=== PATIENT | male | born 1960 | race Caucasian/White ===

== ENCOUNTER 2024-12-17 10:27 | Emergency (ER) | payer OTHER ==
[~2024-12-17] VITALS: Ht 165.1 cm; Wt 132.0 kg
--- NOTE | 2024-12-17 10:57 | ED.PDOC ---
History of Present Illness HPI Comments This is a 64-year-old male who comes in with chief complaint of left foot pain and possible infection. The patient typically sees the doctor at [facility] on Mondays and . Today they went to have him evaluated and the patient had maggots on his left foot. They did clean it and send the patient to the e mergency department's. At this time the patient states that he does not have any significant pain. The patient was also given Toradol prior to arrival. The patient is having some drainage from the area. He does state that last night he accidentally kicked a trash can as well. Chief Complaint: Wound Check Time Seen by MD: 10:28 Primary Care Provider: THAYNE Reviewed Notes: Nurses Notes, Amphibian Crewmember Notes, Medications, Allergies (No allergies to medications) Allergies: Coded Allergies: NO KNOWN ALLERGIES (Unverified , 12/17/24) Information Source: Patient, Emergency Med Personnel Mode of Arrival: EMS Severity: Moderate Timing: Hours Duration: Since onset Prehospital treatment: None Location: Left foot pain with drainage and infection Past Medical History PAST MEDICAL HISTORY: Anxiety, Cancer (Previous history of skin cancer), HTN Surgical History (Other): Skin cancer surgery Family History Family History: Family hx of Cancer, Family hx of heart cookie Social History Smoker: Non-Smoker Alcohol: Denies ETOH Use Drugs: Denies Drug Use Lives In: Home Constitutional: denies: chills, diaphoresis, fatigue, fever, malaise, sweats, weakness, others EENTM: denies: blurred vision, double vision, ear bleeding, ear discharge, ear drainage, ear pain, ear ringing, eye pain, eye redness, hearing loss, mouth pain, mouth swelling, nasal discharge, nose bleeding, nose congestion, nose pain, photophobia, tearing, throat pain, throat swelling, voice changes, others Respiratory: denies: cough, hemoptysis, orthopnea, SOB at rest, shortness of breath, SOB with excertion, stridor, wheezing, others Cardiovascular: denies: chest pain, dizzy spells, diaphoresis, Dyspnea on exertion, edema, irregular heart beat, left arm pain, lightheadedness, palpitations, PND, syncope, others Gastrointestinal: denies: abdomen distended, abdominal pain, blood streaked bowels, constipated, diarrhea, dysphagia, difficulty swallowing, hematemesis, melena, nausea, poor appetite, poor fluid intake, rectal bleeding, rectal pain, vomiting, others Genitourinary: denies: burning, dysuria, flank pain, frequency, hematuria, incontinence, penile discharge, penile sore, pain, testicle pain, testicle swelling, urgency, others Neurological: denies: dizziness, fainting, headache, left sided numbness, left sided weakness, numbness, paresthesia, pre-existing deficit, right sided numbness, right sided weakness, seizure, speech problems, tingling, tremors, weakness, others Musculoskeletal: denies: back pain, gout, joint pain, joint swelling, muscle pain, muscle stiffness, neck pain, others Integumetry: reports: others (Left foot wound with some drainage); denies: bru ises, change in color, change in hair/nails, dryness, laceration, lesions, lumps, rash, wounds Allergic/Immunocompromised: denies: Difficulty Healing, Frequent Infections, Hives, Itching, others Hematologic/Lymphatic: denies: anemia, blood clots, easy bleeding, easy bruising, swollen glands, others Endocrine: denies: excessive hunger, excessive sweating, excessive thirst, excessive urination, flushing, intolerance to cold, intolerance to heat, unexplained weight gain, unexplained weight loss, others Psychiatric: denies: anxiety, bipolar disorder, depression, hopeless, panic disorder, schizophrenia, sleepless, suicidal, others Physical Exam General Appearance: Mild Distress HEENT: Normal ENT Inspection, Pharynx Normal, TMs Normal Neck: Full Range of Motion, Non-Tender, Normal, Normal Inspection Respiratory: Chest Non-Tender, Lungs Clear, No Accessory Muscle Use, No Respiratory Distress, Normal Breath Sounds Cardiovascular: No Edema, No JVD, No Murmur, No Gallop, Normal Peripheral Pulses, Regular Rate/Rhythm Breast Exam: Deferred Gastrointestinal: No Organomegaly, Non Tender, No Pulsatile Mass, Normal Bowel Sounds, Soft Genitalia: Deferred Pelvic: Deferred Rectal: Deferred Extremities: No calf tenderness, Normal capillary refill, No pedal edema, Swelling, Tender, Other (Redness with some drainage to the left foot) Musculoskeletal : Apperance: Normal Neurologic: Alert, inside upholsterer II-XII nml as Tested, No Motor Deficits, Normal Affect, Normal Mood, No Sensory Deficits Cerebellar Function: Normal Reflexes: Normal Skin: Dry, Normal Color, Warm Lymphatic: No Adenopathy Was a procedure done? Was a procedure done?: No Differential Dx Considerations may include: Fracture, strain, contusion, cellulitis, abscess X-Ray, Labs, Meds, VS Vital Signs Date Time Temp Pulse Resp B/P (MAP) Pulse Ox O2 Delivery O2 Flow Rate FiO2 12/17/24 10:30 97.6 72 20 120/64 (82) 98 97.6 Lab Test 12/17/24 10:44 Range/Units White Blood Count 12.1 H 4.4-10.8 10^3/uL Red Blood Count 4.23 L 4.5-5.90 10^6/uL Hemoglobin 12.9 L 13.5-17.5 g/dL Hematocrit 40.0 L 41.0-53.0 % Mean Corpuscular Volume 94.5 80.0-100.0 fL Mean Corpuscular Hemoglobin 30.4 28.0-32.0 pg Mean Corpuscular Hemoglobin Concent 32.2 32.0-36.0 g/dL Red Cell Distribution Width 17.8 H 11.8-14.3 % Platelet Count 416 140-450 10^3/uL Mean Platelet Volume 6.8 L 6.9-10.8 fL Neutrophils (%) (Auto) 79.1 37.0-80.0 % Lymphocytes (%) (Auto) 10.0 10.0-50.0 % Monocytes (%) (Auto) 6.4 0.0-12.0 % Eosinophils (%) (Auto) 3.0 0.0-7.0 % Basophils (%) (Auto) 1.5 0.0-2.0 % Neutrophils # (Auto) 9.6 H 1.6-8.6 10 ^3/uL Lymphocytes # (Auto) 1.2 0.4-5.4 10 ^3/uL Monocytes # (Auto) 0.8 0-1.3 10 ^3/uL Eosinophils # (Auto) 0.4 0-0.8 10 ^3/uL Basophils # (Auto) 0.2 0-0.2 10 ^3/uL Nucleated Red Blood Cells 0.0 % Sodium Level 138 136-145 mmol/L Potassium Level 4.5 3.5-5.1 mmol/L Chloride Level 108 H 98-107 mmol/L Carbon Dioxide Level 17 L 20-31 mmol/L Anion Gap 13 5-15 Blood Urea Nitrogen 31 H 9-23 mg/dL Creatinine 1.89 H 0.700-1.30 mg/dL Glomerular Filtration Rate Calc 39 >90 mL/min BUN/Creatinine Ratio 16.4 10.0-20.0 Serum Glucose 98 74-106 mg/dL Calcium Level 10.4 8.7-10.4 mg/dL IV Hep-Lock was established We did speak with the patient and at this time the patient will be transferred to [facility] A CAT scan of the foot shows: IMPRESSION: 1. No acute osseous abnormality identified. Correlate with clinical findings. 2. Diffuse subcutaneous edema as described above, may be due to cellulitis in the appropriate clinical setting. No organized fluid collection identified on limited noncontrast enhanced CT. The patient is being started on clindamycin IV piggyback The patient's CBC shows an elevated white blood cell count of 12.1 The chemistry panel is within normal limits except for a BUN of 31 and a creatinine of 1.89 Patient is being transferred to [facility] at this time [id number] [place] [id number] Images Reviewed?: Images reviewed and evaluated by me Time of 1ST Reevaluation: 11:04 Reevaluation 1ST: Unchanged Patient Education/Counseling: Diagnosis, Treatment, Prognosis Family Education/Counseling: No Family Present Departure 1 Departure Time of Disposition: 13:08 Impression: Primary Impression: Cellulitis of left foot Disposition: 51 HOSPICE/MEDICAL FACILITY Condition: Fair Critical Care Note Critical Care Time?: No Stability Stability form required: Yes Stable for transfer: Intended for transfer (Health plan request transfer), To designated facility Heart Score Heart Score: Heart Score Response (Comments) Value History N/A 0 EKG N/A 0 Age N/A 0 Risk Factors N/A 0 Troponin N/A 0 Total 0 STEPHY ROMO MD December 17, 2024 10:57
[2024-12-17 11:06] LABS: Basophils # (auto) 0.2 10 ^3/uL (0-0.2); Basophils % (auto) 1.5 % (0.0-2.0); Eosinophils # (auto) 0.4 10 ^3/uL (0-0.8); Hemoglobin 12.9 g/dL (13.5-17.5); Lymphocytes # (auto) 1.2 10 ^3/uL (0.4-5.4); Mean Corpuscular Hemoglobin 30.4 pg (28.0-32.0); Mean Corpuscular Hgb Conc. 32.2 g/dL (32.0-36.0); Mean Corpuscular Volume 94.5 fL (80.0-100.0); Monocytes # (auto) 0.8 10 ^3/uL (0-1.3); Monocytes % (auto) 6.4 % (0.0-12.0); Neutrophils # (auto) 9.6 10 ^3/uL (1.6-8.6); Neutrophils % (auto) 79.1 % (37.0-80.0); Platelet Count (auto) 416 10^3/uL (140-450); Red Blood Cells 4.23 10^6/uL (4.5-5.90); Red Cell Distribution Width 17.8 % (11.8-14.3); White Blood Cell 12.1 10^3/uL (4.4-10.8)
[2024-12-17 11:09] LABS: Potassium 4.5 mmol/L (3.5-5.1); Sodium 138 mmol/L (136-145)
[2024-12-17 11:10] LABS: Anion Gap 13 (5-15); Calcium 10.4 mg/dL (8.7-10.4)
[2024-12-17 11:15] LABS: BUN/Creatinine Ratio 16.4 (10.0-20.0); Glucose 98 mg/dL (74-106)
[2024-12-17 11:16] LABS: Carbon Dioxide 17 mmol/L (20-31); Chloride 108 mmol/L (98-107)
[2024-12-17 11:17] LABS: Blood Urea Nitrogen 31 mg/dL (9-23)
--- NOTE | 2024-12-17 12:15 | DVH ---
CLINICAL INFORMATION: 64 years old, Male; pain and infection. TECHNIQUE: Axial CT images of the left foot were obtained without IV contrast. Coronal and sagittal r eformatted images were obtained, reviewed, and stored. All CT scans at this medical facility are per formed using dose modulation techniques as appropriate to a performed exam including the following: A utomated exposure control was utilized; adjustment of the MA and/or KV according to patient size; and use of iterative reconstruction technique. CTDIvol = 7.89 mGy DLP = 188.65 mGy-cm COMPARISON: None FINDINGS: No acute fracture. No erosive changes or suspicious periosteal reaction or cortical destru ction are seen. Hallux valgus deformity. Bipartite tibial sesamoid of the 1st metatarsal. Peroneal tu bercle of the calcaneus is prominent. There is diffuse subcutaneous edema, most prominent of the late ral aspect of the ankle and dorsal aspect of the midfoot and forefoot. No soft tissue gas or fluid co llection identified. IMPRESSION: 1. No acute osseous abnormality identified. Correlate with clinical findings. 2. Diffuse subcutaneous edema as described above, may be due to cellulitis in the appropriate clinica l setting. No organized fluid collection identified on limited noncontrast enhanced CT. 3. Additional nonacute findings as detailed above.
[2024-12-17 15:08] VITALS: PULSE 67; RESP 16; O2SAT 99
[2024-12-17] MEDS: CLINDAMYCIN 600MG IV 50 ML IV ONE (15:09)
[2024-12-17 17:15] VITALS: BP 158/83; PULSE 68; RESP 18; TEMP 98; O2SAT 98
== END 2024-12-17 13:09 | disposition short-term general hospital (02) ==
LOC: EDBD 10:27 → ER 10:27
DX: L03.116 Cellulitis of left lower limb (principal); F41.9 Anxiety disorder, unspecified; I10 Essential (primary) hypertension; Z85.828 Personal history of other malignant neoplasm of skin; Z98.890 Other specified postprocedural states
CPT/HCPCS: 36415; 73700; 80048; 85025; 96365; 99285; J3490